=== PATIENT | female | born 1955 | race Caucasian/White ===

== ENCOUNTER 2022-09-26 17:11 | Emergency (ER) | payer MEDICARE ==
[~2022-09-26] VITALS: Ht 162.6 cm; Wt 78.6 kg
[2022-09-26] MEDS ORDERED: ATENOLOL50 MG PO (18:24)
[2022-09-26] MEDS ORDERED: ZESTRIL10 MG PO (18:24)
[2022-09-26] MEDS ORDERED: TRAMADOL HCL 50 MG TAB PO ONE (19:15)
[2022-09-26] MEDS ORDERED: ULTRAM 50MG50 MG PO (19:36)
[2022-09-26 19:45] VITALS: BP 145/88
== END 2022-09-26 19:45 | disposition home or self-care (01) ==
LOC: FSED 17:37
DX: S00.03XA Contusion of scalp, initial encounter (principal); S80.02XA Contusion of left knee, initial encounter; S60.211A Contusion of right wrist, initial encounter; W01.0XXA Fall on same level from slipping, tripping and stumbling without subsequent striking against object, initial encounter; Y92.009 Unspecified place in unspecified non-institutional (private) residence as the place of occurrence of the external cause; I10 Essential (primary) hypertension
CPT/HCPCS: 99283